=== PATIENT | female | born 1980 | race Caucasian/White ===

== ENCOUNTER 2018-10-11 21:11 | Emergency (ER) | payer MEDICAID, OTHER ==
[~2018-10-11] VITALS: Ht 165.1 cm; Wt 50.0 kg
[~2018-10-11 21:11] MED LIST: CYAN1TAB28 PO; OMEGA-3 + VITA1 EAC1 PO; PREN1TAB62 PO
[2018-10-11 21:14] VITALS: Ht 165.1 cm; Wt 50.0 kg
[2018-10-12] MEDS ORDERED: D-ME118S24 PO (00:23)
[2018-10-12] MEDS ORDERED: ALBU18HF INHALATION (00:23)
[2018-10-12] MEDS ORDERED: AZIT250T PO (00:23)
--- NOTE | 2018-10-12 00:28 | ERD ---
ER Documentation Chief Complaint Chief Complaint SOB w/ CWP and cough x1 week HPI 38-year-old female no significant past medical history presents for cough x1 week. States that she gets some coughing fits and gets a little short of breath. Admits to some chest wall pain with the cough. She states that she tried TheraFlu, NyQuil, Robitussin, Sudafed without relief. The cough noted to be productive of green sputum. She denies fevers or chills. Denies nausea, vomiting, abdominal pain. No other modifying factors noted. No other treatments tried at home. ROS All systems reviewed and are negative except as per history of present illness. Medications Home Meds Active Scripts Albuterol Sulfate* (Ventolin HFA*) 18 Gm Hfa.aer.ad, 2 PUFF INHALATION Q4H PRN for cough/shortness of breath, #1 INHALER Prov:KARELY DIAS 10/12/18 D-Methorphan Hb/P-Epd HCl/Bpm ([place]-Xlivnaqlzxw-Wj Syr) 118 Ml Syrup, 5 ML PO Q4H PRN for COUGH for 10 Days, #1 BOTTLE Prov:KARELY DIAS 10/12/18 Azithromycin* (Zithromax*) 250 Mg Tablet, 250 MG PO .ZPACK DIRECTED for cough, #6 TAB TAKE 500 MG (2 TABS) THE FIRST DAY THEN 250 MG (1 TAB) DAYS 2-5 Prov:KARELY DIAS 10/12/18 Reported Medications Cyanocobalamin/Folic Acid (Vitamin A44-Imxdj Acid Tablet) 1 Each Tablet, 1 EACH PO 09/25/13 [place] 3/Dha/Epa/Vitamin D3 (OMEGA-3 + VITAMIN D3 SOFTGEL) 1 Each Capsule, 1 EACH PO 09/25/13 Vit-Iron Fumarate-FA ( Vitamin Tablet) 1 Each Tablet, 1 EACH PO 09/25/13 Allergies Allergies: Coded Allergies: No Known Drug Allergies (Unverified Allergy, Unknown, 12/22/15) PMhx/Soc Medical and Surgical Hx: pt denies Medical Hx, pt denies Surgical Hx History of Surgery: No Anesthesia Reaction: No Hx Neurological Disorder: No Hx Respiratory Disorders: No Hx Cardiac Disorders: No Hx Psychiatric Problems: No Hx Miscellaneous Medical Probl: No (PT DENIES MEDICAL HISTORY) Hx Alcohol Use: Yes (SOCIAL) Hx Substance Use: No Hx Tobacco Use: Yes Smoking Status: Current every day smoker FmHx Family History: No coronary disease Physical Exam Vitals Vital Signs Date Temp Pulse Resp B/P (MAP) Pulse Ox O2 O2 Flow FiO2 Time Delivery Rate 10/11/18 99.0 113 20 161/85 100 21:14 (110) Physical Exam Const: No acute distress Head: Atraumatic Eyes: Normal Conjunctiva ENT: Normal External Ears, bilateral tympanic membrane intact without erythema or bulging noted, nose and Mouth examination normal, no tonsillar swelling or exudate noted Neck: Full range of motion. No meningismus. Resp: Clear to auscultation bilaterally, no wheezing, rales, rhonchi Cardio: Regular rate and rhythm, no murmurs Skin: No petechiae or rashes Ext: No cyanosis, or edema Neur: Awake and alert Psych: Normal Mood and Affect Procedures/MDM Medical Decision Making: Differential diagnosis includes but not limited to upper respiratory infection, pneumonia, sepsis, meningitis, influenza. Patient appeared well on physical examination, nontoxic appearing. Lungs were clear to auscultation bilaterally. There is low suspicion for pneumonia, sepsis, meningitis. Given the length of the patient's symptoms patient given a trial of antibiotics Patient also given prescription for supportive medication(s). Patient advised to follow up with PCP in 1-2 days. Patient advised to return to ED for new or worsening symptoms. Patient stable on discharge from the ED. Disclaimer: Inadvertent spelling and grammatical errors are likely due to EHR/d ictation software use and do not reflect on the overall quality of patient care. Also, please note that the electronic time recorded on this note does not necessarily reflect the actual time of the patient encounter. Departure Diagnosis: Primary Impression: Cough Condition: Fair Patient Instructions: Preventing Common Respiratory Infections Referrals: COMMUNITY CLINICS YOU HAVE RECEIVED A MEDICAL SCREENING EXAM AND THE RESULTS INDICATE THAT YOU DO NOT HAVE A CONDITION THAT REQUIRES URGENT TREATMENT IN THE EMERGENCY DEPARTMENT. FURTHER EVALUATION AND TREATMENT OF YOUR CONDITION CAN WAIT UNTIL YOU ARE SEEN IN YOUR DOCTORS OFFICE WITHIN THE NEXT 1-2 DAYS. IT IS YOUR RESPONSIBILITY TO MAKE AN APPOINTMENT FOR FOLOW-UP CARE. IF YOU HAVE A PRIMARY DOCTOR --you should call your primary doctor and schedule an appointment IF YOU DO NOT HAVE A PRIMARY DOCTOR YOU CAN CALL OUR PHYSICIAN REFERRAL HOTLINE AT IF YOU CAN NOT AFFORD TO SEE A PHYSICIAN YOU CAN CHOSE FROM THE FOLLOWING [facility] CL[facility]ICS [facility] [address] [facility] [address] [facility] [facility] [address] [facility] [address] [facility]. [facility] [address] [facility]. [facility] [address] Additional Instructions: Call your primary care doctor TOMORROW for an appointment during the next 1-2 days.See the doctor sooner or return here if your condition worsens before your appointment time. KARELY DIAS DO October 12, 2018 00:28
[2018-10-12 00:34] VITALS: BP 118/91; PULSE 92; RESP 18
== END 2018-10-12 01:02 | disposition home or self-care (01) ==
LOC: FTE 21:11
DX: R05 Cough (principal); F17.210 Nicotine dependence, cigarettes, uncomplicated
CPT/HCPCS: 99283